=== PATIENT | female | born 1955 | race Caucasian/White ===

== ENCOUNTER 2016-11-30 14:26 | Emergency (ER) | payer MEDICARE ==
[~2016-11-30] VITALS: Ht 170.2 cm; Wt 126.0 kg
[2016-11-30 14:34] VITALS: BP 125/58; PULSE 86; RESP 20; TEMP 98.4; O2SAT 95
[2016-11-30] MEDS ORDERED: PAXI30TA7 PO (14:47)
[2016-11-30] MEDS ORDERED: CLON1 PO (14:47)
[2016-11-30] MEDS ORDERED: LISI-515 PO (14:47)
[2016-11-30] MEDS ORDERED: SERO100T PO (14:47)
--- NOTE | 2016-11-30 16:01 | PD ---
HPI Chief Complaint: Injury Time Seen by Provider: 15:27 Travel History International Travel<30 days: No Contact w/Intl Traveler<30days: No Traveled to known affect area: No History of Present Illness HPI 61-year-old female presents to the emergency room for evaluation of acute on chronic right knee pain. Patient states his morning while trying to throw something over her shoulder, she twisted her right knee. She had immediate pain and swelling but did not fall to the ground. Since then, the knee feels unstable. No radiation of symptoms. She took Tylenol this morning without significant relief in symptoms. She has been ambulating with crutches. Patient has had bilateral knee replacements. [place] She has established care with Dr. Triplett. Denies paresthesias. [facility] Past Medical History Depression: Yes Hypertension: Yes Past Surgical History Hysterectomy: Yes Social History Alcohol Use: No Tobacco Use: No Substance Use: No Allergies-Medications (Allergen,Severity, Reaction): Coded Allergies: cephalexin (Verified Allergy, Intermediate, Itching, 11/30/16) Reported Meds & Prescriptions Reported Meds & Active Scripts Active Reported Lisinopril 20 Mg Tab 20 Mg PO DAILY Klonopin (Clonazepam) 1 Mg Tab 1 Mg PO BID Paxil (Paroxetine HCl) 30 Mg Tab 30 Mg PO DAILY Seroquel (Quetiapine Fumarate) 100 Mg Tab 100 Mg PO DAILY Review of Systems Except as stated in HPI: all other systems reviewed are Neg Physical Exam Narrative GENERAL: Well-nourished, well-developed female in no acute distress. Afebrile. Ambulatory with crutches. SKIN: Focused skin assessment warm/dry. HEAD: Normocephalic. EYES: No scleral icterus. No injection or drainage. NECK: Supple, trachea midline. No JVD or lymphadenopathy. CARDIOVASCULAR: Regular rate and rhythm without murmurs, gallops, or rubs. RESPIRATORY: Breath sounds equal bilaterally. No accessory muscle use. MUSCULOSKELETAL: No cyanosis. Moderate edema of the right knee. 2+ dorsalis pedis pulse. Range of motion of the knee secondary to pain. No obvious effusion. No obvious bony tenderness to palpation. Data Data Last Documented VS Vital Signs Date Time Temp Pulse Resp B/P (MAP) Pulse Ox O2 Delivery O2 Flow Rate FiO2 11/30/16 14:34 98.4 86 20 125/58 (80) 95 Orders Orders Knee, Complete (4vws) (11/30/16 ) [facility] Medical Decision Making Medical Screen Exam Complete: Yes Emergency Medical Condition: Yes Medical Record Reviewed: Yes Differential Diagnosis Fracture, effusion, contusion, internal derangement Narrative Course 61-year-old female presents to the emergency room for evaluation of acute on chronic right knee pain. Patient twisted her right knee this morning and had immediate pain and swelling. She did not fall. Since then, her knee feels unstable. Right lower extremity is neurovascularly intact with 2+ dorsalis pedis pulse. Limited range of motion secondary to pain. X-ray is negative. Patient placed in [place] wrap and discharged with prescription for ibuprofen. Told to follow-up with her orthopedist in 1 week if symptoms persist for outpatient imaging or return for worsening symptoms. She understands and agrees to plan. Diagnosis Primary Impression: Internal derangement of right knee Referrals: Primary Care Physician Additional Instructions: Rest and drink plenty of fluids. Use [place] wrap and crutches as needed for pain. Take ibuprofen with food as directed, as needed for pain. Apply ice to the affected area for 20 minutes at a time, as needed for pain and swelling. Follow-up with orthopedist for outpatient MRI if symptoms persist. Return to the emergency room for worsening symptoms. Disposition: 01 DISCHARGE HOME Condition: Stable Ivelisse Vega Nov 30, 2016 16:01
--- NOTE | 2016-11-30 16:39 | RADRPT ---
EXAM DATE/TIME: 11/30/2016 16:21 [place] COMPARISON: No previous studies available for comparison. INDICATIONS : [place] pop while moving things in her house yesterday. Pain in posterior surface of right knee. MEDICAL HISTORY : None. SURGICAL HISTORY : None. ENCOUNTER: Initial ACUITY: 1 day PAIN SCORE: 4/10 LOCATION: Right Knee. FINDINGS: Total knee arthroplasty is in place. The femoral, tibial, and patellar components appear intact. Th ere are no signs of loosening or fracture. CONCLUSION: Intact total knee arthroplasty for technique. Petr Bower MD on November 30, 2016 at 16:37 Board Certified Radiologist. This report was verified electronically.
[2016-11-30] MEDS ORDERED: IBUP-232 PO (16:43)
== END 2016-11-30 16:59 | disposition home or self-care (01) ==
LOC: PHEFT 14:26
DX: M23.91 Unspecified internal derangement of right knee (principal); Z96.653 Presence of artificial knee joint, bilateral; I10 Essential (primary) hypertension; X50.1XXA Overexertion from prolonged static or awkward postures, initial encounter; Y99.8 Other external cause status
CPT/HCPCS: 73564; 99283